=== PATIENT | female | born 1935 | race Caucasian/White ===

== ENCOUNTER 2018-03-07 21:14 | Observation (INO) ==
--- NOTE | 2018-03-07 21:37 | ED ---
HPI General Chief complaint: Syncope Stated complaint: Low blood pressure/syncopal episode Time Seen by Provider: 03/07/18 21:31 History of Present Illness HPI narrative: 82-year-old female with no significant past medical history presents via EMS for evaluation of syncope. She reports that tonight she stood up from a sitting position, felt lightheaded and passed out. Her caught her, she did not fall to the ground. She was hypotensive when EMS arrived with a systolic blood pressure in the 80s. She received 1 L of normal saline. She is currently experiencing mild lightheadedness but is otherwise asymptomatic. Denies chest pain, shortness of breath, recent illness, headache , blurred vision, vomiting, abdominal pain, recent change in diet. She reports that she had a syncopal episode last week in a sitting position. She saw a neurologist Dr. Hatch and reportedly had MRI and MRA of the brain which were negative, EEG which she does not know the results of. No conclusion in regards to her syncopal event last week. She does not have a primary care physician, moved here from [place] 6 months ago. No other complaints. Related Data Allergies Allergy/AdvReac Type Severity Reaction Status Date / Time No Known Allergies Allergy Unverified 03/07/18 21:31 Review of Systems ROS: all other systems reviewed are negative PMFSH Medical History Medical History Absolute glaucoma of both eyes (Acute) Vertigo (Acute) Social History Social History Substance History: No History of Abuse Smoking Status: Never smoker How Often Do You Have a Drink Containing Alcohol: Never Exam Narrative Exam Narrative: GENERAL: Well-developed well-nourished female no acute distress SKIN: Warm and dry. HEAD: Atraumatic. Normocephalic. EYES: Pupils equal and round. No scleral icterus. No injection or drainage. ENT: No nasal bleeding or discharge. Mucous membranes pink and moist. NECK: Trachea midline. No JVD. CARDIOVASCULAR: Regular rate and rhythm. No murmur appreciated. RESPIRATORY: No accessory muscle use. Clear to auscultation. Breath sounds equal bilaterally. GASTROINTESTINAL: Abdomen soft, non-tender, nondistended. Hepatic and splenic margins not palpable. MUSCULOSKELETAL: No obvious deformities. No clubbing. No cyanosis. No edema. NEUROLOGICAL: Awake and alert. No obvious cranial nerve deficits. Motor grossly within normal limits. Normal speech. PSYCHIATRIC: Appropriate mood and affect; insight and judgment normal. Course Initial Documented Vital Signs Temperature 97.7 F 03/07/18 21:28 Pulse Rate 62 03/07/18 21:28 Respiratory Rate 18 03/07/18 21:28 Blood Pressure 111/66 03/07/18 21:28 Pulse Oximetry 100 03/07/18 21:28 Last Documented Vital Signs Temperature 97.7 F 03/07/18 21:28 Pulse Rate 60 03/07/18 21:33 Respiratory Rate 18 03/07/18 21:33 Blood Pressure 111/66 03/07/18 21:33 Pulse Oximetry 100 03/07/18 21:28 Medical Decision Making MDM Narrative Medical decision making narrative: Patient was placed on ECG monitoring pulse oximetry. 12-lead EKG obtained. Lab work, chest x-ray, CT brain ordered. EKG reveals sinus bradycardia with a rate of 58, first-degree AV block. CT the brain reveals no acute abnormalities. CBC unremarkable. BMP reveals a potassium of 3.4, oral potassium chloride administered. At this point time given a history of 2 syncopal events in the past week, the plan will be to admit the patient for observation for further evaluation. Medical Screen Exam Complete: Yes Emergency Medical Condition: Yes Differential Diagnosis Differential Diagnosis: Orthostatic hypotension, vasovagal syncope, electrolyte abnormality, hyperglycemia, dehydration, arrhythmia, structural heart abnormality Lab Data Result diagrams: 03/07/18 21:55 03/07/18 21:55 Lab Results 03/07/18 03/07/18 Range/Units 21:55 21:55 WBC 8.5 (4.0-11.0) th/mm3 RBC 4.32 (4.00-5.30) mil/mm3 Hgb 13.2 (11.6-15.3) gm/dL Hct 40.3 (35.0-46.0) % MCV 93.1 (80.0-100.0) fL MCH 30.6 (27.0-34.0) pg MCHC 32.8 (32.0-36.0) % RDW 14.8 (11.6-17.2) % Plt Count 163 (150-450) th/mm3 MPV 10.1 (7.0-11.0) fL Neut % (Auto) 71.7 H (16.0-70.0) % Lymph % (Auto) 20.9 (9.0-44.0) % [place] % (Auto) 5.8 (0.0-8.0) % Eos % (Auto) 1.1 (0.0-4.0) % Baso % (Auto) 0.5 (0.0-2.0) % Neut # (Auto) 6.1 (1.8-7.7) th/mm3 Lymph # (Auto) 1.8 (1.0-4.8) th/mm3 [place] # (Auto) 0.5 (0.0-0.9) th/mm3 Eos # (Auto) 0.1 (0.0-0.4) th/mm3 Baso # (Auto) 0.0 (0.0-0.2) th/mm3 WBC Differential . Differential Comment Auto diff final Sodium 143 (136-145) meq/L Potassium 3.4 L (3.5-5.1) meq/L Chloride 111 H (98-107) meq/L Carbon Dioxide 24.2 (21.0-32.0) meq/L Anion Gap 8 (5-15) meq/L BUN 19 H (7-18) mg/dL Creatinine 0.83 (0.50-1.00) mg/dL Estimated GFR 66 L (>89) mL/min Random Glucose 96 (74-106) mg/dL Calcium 8.1 L (8.5-10.1) mg/dL Magnesium 1.9 (1.5-2.5) mg/dL Total Bilirubin 0.4 (0.2-1.0) mg/dL AST 16 (15-37) U/L ALT 17 (10-53) U/L Alkaline Phosphatase 46 (45-117) U/L Troponin I Less than 0.02 L (0.02-0.05) ng/mL Total Protein 5.9 L (6.4-8.2) g/dL Albumin 3.3 L (3.4-5.0) g/dL Imaging Data Radiologist's impression: Chest X-Ray 03/07/18 21:31 CONCLUSION: 1. No acute cardiopulmonary disease identified. 2. Age-indeterminate upper lumbar vertebral body compression fracture deformity. Head CT 03/07/18 21:31 CONCLUSION: No acute intracranial findings. . Discharge Plan Discharge Disposition Patient Disposition: 30 Still Patient Discharge Condition Condition: Stable Discharge Details Diagnosis: Syncope Physicians Team ED Provider: Lolis Phillip ED Midlevel Provider: Dung Corbin Primary Care Provider: UNKNOWN, Status ED Status: With Doctor
--- NOTE | 2018-03-07 22:24 | CT ---
EXAM DATE: 03/07/2018 10:18 PM EDT AGE/SEX: 82 years / Female INDICATIONS: Multiple syncopal episodes. CLINICAL DATA: This is the patient's initial encounter. Patient reports that signs and symptoms have been present for 1 day and indicates a pain score of 0/10. MEDICAL/SURGICAL HISTORY: None. None. RADIATION DOSE: 56.35 CTDI (mGy) COMPARISON: No prior exams available for comparison. TECHNIQUE: CT of the head without contrast. Using automated exposure control and adjustment of the mA and/or kV according to patient size, radiation dose was kept as low as reasonably achievable to ob tain optimal diagnostic quality images. DICOM format image data is available electronically for revi ew and comparison. FINDINGS: Cerebrum: Diffuse age-appropriate atrophy. No evidence of midline shift, mass lesion, hemorrhage or acute infarction. No extraaxial fluid collections are seen. Posterior Fossa: The cerebellum and brainstem are intact. The 4th ventricle is midline. The cerebe llopontine angle is unremarkable. Extracranial: The visualized portion of the orbits is intact. Skull: The calvaria is intact. No evidence of skull fracture. CONCLUSION: No acute intracranial findings. . Electronically signed by: Antonio Neves MD 03/07/2018 10:23 PM EDT
[2018-03-07 22:39] LABS: Baso % (Auto) 0.5 % (0.0-2.0); Eos # (Auto) 0.1 th/mm3 (0.0-0.4); Eos % (Auto) 1.1 % (0.0-4.0); Hematocrit 40.3 % (35.0-46.0); Hemoglobin 13.2 gm/dL (11.6-15.3); Lymph # (Auto) 1.8 th/mm3 (1.0-4.8); Lymph % (Auto) 20.9 % (9.0-44.0); Mean Corpuscular HGB Conc 32.8 % (32.0-36.0); Mean Corpuscular Hemoglobin 30.6 pg (27.0-34.0); Mean Corpuscular Volume 93.1 fL (80.0-100.0); Mean Platelet Volume 10.1 fL (7.0-11.0); Mono # (Auto) 0.5 th/mm3 (0.0-0.9); Mono % (Auto) 5.8 % (0.0-8.0); Neut # (Auto) 6.1 th/mm3 (1.8-7.7); Neut % (Auto) 71.7 % (16.0-70.0); Platelet Count 163 th/mm3 (150-450); Red Blood Count 4.32 mil/mm3 (4.00-5.30); Red Cell Distribution Width 14.8 % (11.6-17.2); White Blood Count 8.5 th/mm3 (4.0-11.0)
[2018-03-07 22:44] LABS: Albumin 3.3 g/dL (3.4-5.0); Anion Gap 8 meq/L (5-15); Aspartate Aminotransferase 16 U/L (15-37); Blood Urea Nitrogen 19 mg/dL (7-18); Calcium 8.1 mg/dL (8.5-10.1); Carbon Dioxide 24.2 meq/L (21.0-32.0); Chloride 111 meq/L (98-107); Glomerular Filtration Rate 66 mL/min (>89); Glucose,Random 96 mg/dL (74-106); Magnesium 1.9 mg/dL (1.5-2.5); Potassium 3.4 meq/L (3.5-5.1); Sodium 143 meq/L (136-145)
[2018-03-07 22:45] LABS: Alanine Aminotransferase 17 U/L (10-53)
[2018-03-07 22:49] LABS: Alkaline Phosphatase 46 U/L (45-117); Total Protein 5.9 g/dL (6.4-8.2)
--- NOTE | 2018-03-07 22:57 | XR ---
EXAM DATE: 03/07/2018 10:29 PM EDT AGE/SEX: 82 years / Female INDICATIONS: . Shortness of breath. Possible syncopal episode today. CLINICAL DATA: This is the patient's initial encounter. Patient reports that signs and symptoms have been present for 1 day and indicates a pain score of 0/10. MEDICAL/SURGICAL HISTORY: None. None. COMPARISON: No prior exams available for comparison. FINDINGS: PA and lateral views of the chest. The lungs are clear. Cardiomediastinal silhouette with in normal limits. No evidence of pleural effusion or pneumothorax. Age-indeterminate mild compressi on fracture deformity of an upper lumbar vertebral body. CONCLUSION: 1. No acute cardiopulmonary disease identified. 2. Age-indeterminate upper lumbar vertebral body compression fracture deformity. Electronically signed by: Antonio Neves MD 03/07/2018 10:55 PM EDT
[2018-03-07] MEDS ORDERED: Bisacodyl 10 MG Supp RECTAL PRN (23:08)
[2018-03-07] MEDS ORDERED: Acetaminophen 325 MG Tablet PO PRN (23:08)
--- NOTE | 2018-03-07 23:32 | P.HPIM ---
History of Present Illness Primary Care Physician: UNKNOWN History of Present Illness: This is an 82-year-old female with a PMH of Vertigo and Glaucoma who was brought to the ER by EMS after syncopal event. Pt reports feeling "weak" earlier this evening, "like I needed to bend over" at which time she had subsequent syncopal event, caught by and lowered to a chair. No head trauma reported. Denies dizziness or lightheadedness prior to event. Notes she was seen by Dr. Hatch 1wk ago after "doing funny things", states she was eating breakfast and was putting her spoon in the butter instead of her coffee and trying to cut her plate instead of her toast, pt has no recollection of those events and cannot recall if she had syncope at that time. States she had MRI/MRA which were reportedly negative per patient, and had EEG/labs done but does not know the results. Upon EMS arrival tonight, pt noted to be hypotensive w/ BP in the 80's s/p IVF w/ improvement. BP 111/66, HR 62, O2 sat 100% on RA, Afebrile. CBC unremarkable. K+ 3.4. BUN 19, GFR 66. Troponin negative. CXR with no acute findings, age indeterminate lumbar vertebral body compression fracture. CT Head with no acute findings. - Diagnosis (1) Syncope (2) Hypokalemia (3) Dehydration Review of Systems PAST FAMILY HISTORY: Reviewed. No h/o DM or CAD All other systems reviewed negative except as stated in HPI [facility] - History History Provided By: Patient - Medical History Medical History: Medical History (Last Updated 03/07/18 @ 21:34 by Johanna Albarran) Absolute glaucoma of both eyes Vertigo - Tobacco History Smoking Status: Never smoker - Alcohol History How Often Do You Have a Drink Containing Alcohol: Never - Substance Use History Substance History: No History of Abuse - Immunization History Tetanus Immunization: >5 Years Hx Influenza Vaccine This Season: No Medications and Allergies Active Medications: Active Medications Acetaminophen (Tylenol) 650 mg PO Q4H PRN PRN Reason: Temp > 100.4 Al Hydroxide/Mg Hydroxide (Milk Of Magnesia Liq) 30 ml PO Q12H PRN PRN Reason: Mild Constipation Bisacodyl (Dulcolax Supp) 10 mg RECTAL DAILY PRN PRN Reason: SEVERE CONSITIPATION Sodium Chloride (Ns Inj) 1,000 mls @ 100 mls/hr IV.CONT .Q10H RO Lactulose (Lactulose Liq) 30 ml PO DAILY PRN PRN Reason: SEVERE CONSITIPATION Ondansetron HCl (Zofran Inj) 4 mg IV.PUSH Q6H PRN PRN Reason: NAUSEA OR VOMITING Senna/Docusate Sodium (Nina-Colace) 1 tab PO BID RO Sennosides (Senokot) 17.2 mg PO Q12H PRN PRN Reason: Moderate Constipation Allergies Allergy/AdvReac Type Severity Reaction Status Date / Time No Known Allergies Allergy Unverified 03/07/18 21:31 Exam Vital signs: Vital Signs 03/07/18 21:28 03/07/18 21:33 03/07/18 23:13 Temperature 97.7 F Pulse Rate 62 60 65 Respiratory Rate 18 18 18 Blood Pressure 111/66 111/66 101/57 L Pulse Oximetry 100 95 Intake & Output 03/07/18 03/07/18 03/08/18 06:59 18:59 06:59 Weight 54.431 kg Narrative: PE: GENERAL: Extremely pleasant elderly white female in no acute distress. SKIN: Focused skin assessment warm and dry. HEENT: PERRLA, EOMI. No scleral icterus or conjunctival pallor. No lid lag or facial droop. CARDIOVASCULAR: Regular rate and rhythm. No obvious murmurs to auscultation. No chest tenderness to palpation. RESPIRATORY: No obvious rhonchi or wheezing. Clear to auscultation. Breath sounds equal bilaterally. GASTROINTESTINAL: Abdomen soft, non-tender, nondistended. BS normal. MUSCULOSKELETAL: Extremities without clubbing, cyanosis, or edema. No obvious deformities. NEUROLOGICAL: Awake, alert and oriented x4. No focal neurologic deficits. Moving both upper and lower extremities spontaneously. PSYCHIATRIC: Appropriate mood and affect. Insight and judgment normal. Results - Labs CBC & Chem 7: 03/07/18 21:55 03/07/18 21:55 Labs: Short CBC 03/07/18 Range/Units 21:55 WBC 8.5 (4.0-11.0) th/mm3 Hgb 13.2 (11.6-15.3) gm/dL Hct 40.3 (35.0-46.0) % Plt Count 163 (150-450) th/mm3 BMP 03/07/18 21:55 Sodium 143 Potassium 3.4 L Chloride 111 H Carbon Dioxide 24.2 BUN 19 H Creatinine 0.83 Calcium 8.1 L Cardiac Enzymes 03/07/18 Range/Units 21:55 Troponin I Less than 0.02 L (0.02-0.05) ng/mL Liver Function 03/07/18 Range/Units 21:55 Total Bilirubin 0.4 (0.2-1.0) mg/dL AST 16 (15-37) U/L ALT 17 (10-53) U/L Alkaline Phosphatase 46 (45-117) U/L Albumin 3.3 L (3.4-5.0) g/dL - Imaging Impressions Chest X-Ray 03/07/18 21:31 CONCLUSION: 1. No acute cardiopulmonary disease identified. 2. Age-indeterminate upper lumbar vertebral body compression fracture deformity. Head CT 03/07/18 21:31 CONCLUSION: No acute intracranial findings. . Caprini VTE Risk Assessment Caprini VTE Risk Assessment: No/Low Risk (score <= 1) Caprini Risk Assessment Model: Point Value = 1 Point Value = 2 Point Value = 3 Point Value = 5 Age 41-60 Minor surgery BMI > 25 kg/m2 Swollen legs Varicose veins or History of unexplained or recurrent spontaneous Oral contraceptives or hormone replacement Sepsis (< 1 month) Serious lung disease, including pneumonia (< 1 month) Abnormal pulmonary function Acute myocardial infarction Congestive heart failure (< 1 month) History of inflammatory bowel disease Medical patient at bed rest Age 61-74 Arthroscopic surgery Major open surgery (> 45 min) Laparoscopic surgery (> 45 min) Malignancy Confined to bed (> 72 hours) Immobilizing plaster cast Central venous access Age >= 75 History of VTE Family history of VTE Factor V Leiden Prothrombin [id number] Lupus anticoagulant Anticardiolipin antibodies Elevated serum homocysteine Heparin-induced thrombocytopenia Other congenital or acquired thrombophilia Stroke (< 1 month) Elective arthroplasty Hip, pelvis, or leg fracture Acute spinal cord injury (< 1 month) Prophylaxis Regimen: Total Risk Factor Score Risk Level Prophylaxis Regimen 0-1 Low Early ambulation 2 Moderate Order ONE of the following: *Sequential Compression Device (SCD) *Heparin 5000 units SQ BID 3-4 Higher Order ONE of the following medications: *Heparin 5000 units SQ TID *Enoxaparin/Lovenox 40 mg SQ daily (WT < 150 kg, CrCl > 30 mL/min) *Enoxaparin/Lovenox 30 mg SQ daily (WT < 150 kg, CrCl > 10-29 mL/min) *Enoxaparin/Lovenox 30 mg SQ BID (WT < 150 kg, CrCl > 30 mL/min) AND/OR *Sequential Compression Device (SCD) 5 or more Highest Order ONE of the following medications: *Heparin 5000 units SQ TID (Preferred with Epidurals) *Enoxaparin/Lovenox 40 mg SQ daily (WT < 150 kg, CrCl > 30 mL/min) *Enoxaparin/Lovenox 30 mg SQ daily (WT < 150 kg, CrCl > 10-29 mL/min) *Enoxaparin/Lovenox 30 mg SQ BID (WT < 150 kg, CrCl > 30 mL/min) AND *Sequential Compression Device (SCD) Assessment and Plan - Assessment (1) Syncope Code(s): R55 - Syncope and collapse Status: Acute (2) Hypokalemia Code(s): E87.6 - Hypokalemia Status: Acute (3) Dehydration Code(s): E86.0 - Dehydration Status: Acute - Plan A/P: 1. Syncope: acute syncopal event, lowered to chair by family, no head trauma. CT Head w/ no acute findings, images reviewed. Episode of confusion/bizarre behavior 1wk ago, s/p eval by Dr. Hatch w/ reportedly negative MRI/MRA, EEG/ labs also done but no results available-unclear if syncope related to events of last week. Admit for further observation, telemetry, initial trop negative, check serial cardiac enzymes to eval for ischemia, check Echo to eval for valvular abnormalities, consult Dr. Hatch for further evaluation, Consult Cardiology for further eval/intervention, Holter. 2. Hypokalemia: K+ 3.4, s/p replacement, will recheck and replace as needed 3. Dehydration: BUN 19, GFR 66, IVF for hydration, check U/a to eval for UTI, monitor I/O. 4. DVT Prophylaxis: SCD/Teds 5. Social work for d/c planning as needed 6. Case discussed w/ ER physician at length, labs/records/imaging reviewed by me.
[2018-03-08] MEDS: Sod Chloride 0.9% Inj 1,000 ML IV.CONT SCH ×3 (00:34→21:36)
[2018-03-08 02:41] LABS: Bilirubin,Urine Negative (Negative); Clarity,Urine Clear (Clear); Color,Urine Yellow (Yellw/Straw); Glucose,Urine (UA) Negative (Negative); Leukocyte Esterase,Urine Moderate (Negative); Mucus,Urine Few /lpf (Occasional); Nitrite,Urine Negative (Negative); Specific Gravity,Urine 1.017 (1.002-1.035); Squamous Epithelial Cell,Urine <1 /hpf (0-5)
[2018-03-08 06:56] LABS: Baso % (Auto) 0.4 % (0.0-2.0); Eos # (Auto) 0.1 th/mm3 (0.0-0.4); Eos % (Auto) 1.4 % (0.0-4.0); Hematocrit 38.5 % (35.0-46.0); Hemoglobin 12.7 gm/dL (11.6-15.3); Lymph # (Auto) 1.9 th/mm3 (1.0-4.8); Lymph % (Auto) 27.9 % (9.0-44.0); Mean Corpuscular Volume 93.8 fL (80.0-100.0); Mean Platelet Volume 10.8 fL (7.0-11.0); Mono # (Auto) 0.5 th/mm3 (0.0-0.9); Mono % (Auto) 7.8 % (0.0-8.0); Neut # (Auto) 4.2 th/mm3 (1.8-7.7); Neut % (Auto) 62.5 % (16.0-70.0); Platelet Count 140 th/mm3 (150-450); Red Cell Distribution Width 14.5 % (11.6-17.2); White Blood Count 6.7 th/mm3 (4.0-11.0)
[2018-03-08 07:09] LABS: Anion Gap 10 meq/L (5-15); Aspartate Aminotransferase 16 U/L (15-37); Blood Urea Nitrogen 14 mg/dL (7-18); Calcium 7.8 mg/dL (8.5-10.1); Chloride 114 meq/L (98-107); Glomerular Filtration Rate 87 mL/min (>89); Glucose,Random 92 mg/dL (74-106); Potassium 4.1 meq/L (3.5-5.1); Sodium 144 meq/L (136-145)
[2018-03-08 07:10] LABS: Alanine Aminotransferase 15 U/L (10-53)
[2018-03-08 07:12] LABS: Alkaline Phosphatase 43 U/L (45-117); Total Protein 5.6 g/dL (6.4-8.2)
[2018-03-08] MEDS: Senna/Docusate Sodium 8.6/50 MG Tablet PO SCH ×2 (09:55→20:16)
--- NOTE | 2018-03-08 13:58 | ECG ---
Date Performed: 03/08/2018 Time Performed: 05:58:25 PTAGE: 82 years EKG: Sinus rhythm NORMAL ECG INTERPRETATION BASED ON A DEFAULT AGE OF 40 YEARS NO PREVIOUS TRACING DOCTOR: Jenaro Ordaz Interpretating Date/Time 03/08/2018 13:56:24
--- NOTE | 2018-03-08 14:00 | ECG ---
Date Performed: 03/08/2018 Time Performed: 02:25:26 PTAGE: 82 years EKG: Sinus rhythm NORMAL ECG NO PREVIOUS TRACING DOCTOR: Jenaro Oradz Interpretating Date/Time 03/08/2018 13:57:50
--- NOTE | 2018-03-08 14:04 | ECG ---
Date Performed: 03/07/2018 Time Performed: 21:36:59 PTAGE: 82 years EKG: SINUS BRADYCARDIA WITH FIRST DEGREE AV BLOCK ABNORMAL ECG PREVIOUS TRACING : 03/07/2018 21.36 DOCTOR: Jenaro Ordaz Interpretating Date/Time 03/08/2018 14:01:29
--- NOTE | 2018-03-08 15:46 | P.PN ---
Subjective Interval history: Patient seen lying in bed after working with physical therapy. Tolerated PT well. Denies any further syncopal episodes. No dizziness, headache or changes in vision. She was not aware she had a UTI-no dysuria. No fever or chills. No chest pain or shortness of breath. Physical Exam Vital signs: Vital Signs 03/07/18 21:28 03/07/18 21:33 03/07/18 23:13 Temperature 97.7 F Pulse Rate 62 60 65 Respiratory Rate 18 18 18 Blood Pressure 111/66 111/66 101/57 L Pulse Oximetry 100 95 03/08/18 00:00 03/08/18 04:00 03/08/18 10:09 Temperature 97.9 F 97.9 F Pulse Rate 70 70 70 Respiratory Rate 19 19 Blood Pressure 117/56 L 117/56 L Pulse Oximetry 95 95 03/08/18 12:15 Temperature 98.2 F Pulse Rate 78 Respiratory Rate 20 Blood Pressure 123/60 Pulse Oximetry 98 Intake & Output 03/07/18 03/08/18 03/08/18 18:59 06:59 18:59 Intake Total 50 / 50 600 / 600 Balance 50 / 50 600 / 600 Weight 54.431 kg Intake: IV 100 / 100 NS Inj 1,000 ML @ 100 mls/hr IV 0 / 0 .CONT .Q10H RO Rx#:[id number] Rocephin Inj 1,000 MG In NS Inj 100 / 100 100 ML @ 200 mls/hr IV.SIG Q12H RO Rx#:[id number] Oral 50 / 50 500 / 500 Other: # Voids 1 Weight On Admission 54.431 kg Narrative: GENERAL: Extremely pleasant elderly white female in no acute distress. SKIN: Focused skin assessment warm and dry. HEENT: PERRLA, EOMI. No scleral icterus or conjunctival pallor. No lid lag or facial droop. CARDIOVASCULAR: Regular rate and rhythm. No obvious murmurs to auscultation. No chest tenderness to palpation. RESPIRATORY: Clear to auscultation. Breath sounds equal bilaterally. GASTROINTESTINAL: Abdomen soft, non-tender, nondistended. BS normal. MUSCULOSKELETAL: Extremities without clubbing, cyanosis, or edema. No obvious deformities. NEUROLOGICAL: Awake, alert and oriented x4. No focal neurologic deficits. Moving both upper and lower extremities spontaneously. PSYCHIATRIC: Appropriate mood and affect. Insight and judgment normal. Results - Labs CBC & Chem 7: 03/08/18 05:55 03/08/18 05:55 Laboratory Results - last 24 hr 03/07/18 03/07/18 03/08/18 21:55 21:55 02:00 WBC 8.5 RBC 4.32 Hgb 13.2 Hct 40.3 MCV 93.1 MCH 30.6 MCHC 32.8 RDW 14.8 Plt Count 163 MPV 10.1 Neut % (Auto) 71.7 H Lymph % (Auto) 20.9 [place] % (Auto) 5.8 Eos % (Auto) 1.1 Baso % (Auto) 0.5 Neut # (Auto) 6.1 Lymph # (Auto) 1.8 [place] # (Auto) 0.5 Eos # (Auto) 0.1 Baso # (Auto) 0.0 WBC Differential . Differential Comment Auto diff final Sodium 143 Potassium 3.4 L Chloride 111 H Carbon Dioxide 24.2 Anion Gap 8 BUN 19 H Creatinine 0.83 Estimated GFR 66 L Random Glucose 96 Calcium 8.1 L Magnesium 1.9 Total Bilirubin 0.4 AST 16 ALT 17 Alkaline Phosphatase 46 Troponin I Less than 0.02 L Less than 0.02 L Total Protein 5.9 L Albumin 3.3 L Urine Color Urine Clarity Urine pH Ur Specific [place] Urine Protein Urine Glucose (UA) Urine Ketones Urine Occult Blood Urine Nitrate Urine Bilirubin Urine Urobilinogen Ur Leukocyte Esterase Urine RBC Urine WBC Ur Squamous Epith Cells Urine Mucus Micro UA Comment Ur Microscopic Review Urine Culture Comments 03/08/18 03/08/18 03/08/18 02:20 05:55 05:55 WBC 6.7 RBC 4.10 Hgb 12.7 Hct 38.5 MCV 93.8 MCH 31.0 MCHC 33.0 RDW 14.5 Plt Count 140 L MPV 10.8 Neut % (Auto) 62.5 Lymph % (Auto) 27.9 [place] % (Auto) 7.8 Eos % (Auto) 1.4 Baso % (Auto) 0.4 Neut # (Auto) 4.2 Lymph # (Auto) 1.9 [place] # (Auto) 0.5 Eos # (Auto) 0.1 Baso # (Auto) 0.0 WBC Differential . Differential Comment Auto diff final Sodium 144 Potassium 4.1 Chloride 114 H Carbon Dioxide 20.0 L Anion Gap 10 BUN 14 Creatinine 0.65 Estimated GFR 87 L Random Glucose 92 Calcium 7.8 L Magnesium Total Bilirubin 0.6 AST 16 ALT 15 Alkaline Phosphatase 43 L Troponin I Total Protein 5.6 L Albumin 3.0 L Urine Color Yellow Urine Clarity Clear Urine pH 5.0 Ur Specific [place] 1.017 Urine Protein Negative Urine Glucose (UA) Negative Urine Ketones Negative Urine Occult Blood Negative Urine Nitrate Negative Urine Bilirubin Negative Urine Urobilinogen Less than 2 Ur Leukocyte Esterase Moderate H Urine RBC 1 Urine WBC 21 H Ur Squamous Epith Cells <1 Urine Mucus Few H Micro UA Comment Culture indicated Ur Microscopic Review Not Reportable Urine Culture Comments Culture indicated 03/08/18 05:55 WBC RBC Hgb Hct MCV MCH MCHC RDW Plt Count MPV Neut % (Auto) Lymph % (Auto) [place] % (Auto) Eos % (Auto) Baso % (Auto) Neut # (Auto) Lymph # (Auto) [place] # (Auto) Eos # (Auto) Baso # (Auto) WBC Differential Differential Comment Sodium Potassium Chloride Carbon Dioxide Anion Gap BUN Creatinine Estimated GFR Random Glucose Calcium Magnesium Total Bilirubin AST ALT Alkaline Phosphatase Troponin I Less than 0.02 L Total Protein Albumin Urine Color Urine Clarity Urine pH Ur Specific [place] Urine Protein Urine Glucose (UA) Urine Ketones Urine Occult Blood Urine Nitrate Urine Bilirubin Urine Urobilinogen Ur Leukocyte Esterase Urine RBC Urine WBC Ur Squamous Epith Cells Urine Mucus Micro UA Comment Ur Microscopic Review Urine Culture Comments - Imaging Impressions Chest X-Ray 03/07/18 21:31 CONCLUSION: 1. No acute cardiopulmonary disease identified. 2. Age-indeterminate upper lumbar vertebral body compression fracture deformity. Head CT 03/07/18 21:31 CONCLUSION: No acute intracranial findings. . Assessment and Plan - Assessment (1) Syncope Code(s): R55 - Syncope and collapse Status: Acute (2) Hypokalemia Code(s): E87.6 - Hypokalemia Status: Acute (3) Dehydration Code(s): E86.0 - Dehydration Status: Acute - Plan A/P: 1. Syncope: acute syncopal event, lowered to chair by family, no head trauma. -CT Head w/ no acute findings- -Episode of confusion/bizarre behavior 1wk ago, s/p eval by Dr. Hatch w/ reportedly negative MRI/MRA, EEG/labs also done but no results available- unclear if syncope related to events of last week. -telemetry, trop negative -Echo ordered -consult Dr. Hatch for further evaluation -Consult Cardiology for further eval/intervention 2. Hypokalemia: - K+ 3.4, s/p replacement, will recheck and replace as needed 3. Dehydration: -IVF for hydration 4. UTI -Start Rocephin; monitor cultures DVT Prophylaxis: SCD/Teds
--- NOTE | 2018-03-08 15:59 | P.CONNEU ---
History of Present Illness Service: NEUROLOGY Consult date: 03/08/18 Reason for Consult: TAMICA Primary Care Provider: UNKNOWN Chief Complaint: PASSED OUT, NOTED STARING EPISODES History of Present Illness: IT IS A PRIVILEGE TO PROVIDE ANEUROLOGY CONSULTATION FOR THIS 82 YO LADY BROUGHT IN BY HER FAMILY AFTER DIZZINESS, BLACK OUT WITH WITNESSED STARING EVENTS, AMNESIA WOKE UP W [facility]L [facility]Y. NO BITEN TONGUE + SWEATY Review of Systems All other systems reviewed negative except as stated in HPI Neurologic: Reports abnormal hearing PMFSH - History History Provided By: Patient - Medical History Medical History: Medical History (Last Reviewed 03/08/18 @ 08:08 by Donato Wilkinson) Absolute glaucoma of both eyes Vertigo - Tobacco History Second Hand Smoke Exposure: No Tobacco Use In Past 30 Days: No Smoking Status: Former smoker - Alcohol History How Often Do You Have a Drink Containing Alcohol: 2 to 3 times a week - Substance Use History Substance History: No History of Abuse - Immunization History Tetanus Immunization: >5 Years Hx Influenza Vaccine This Season: No Medications and Allergies Active Medications: Active Medications Acetaminophen (Tylenol) 650 mg PO Q4H PRN PRN Reason: Temp > 100.4 Al Hydroxide/Mg Hydroxide (Milk Of Magnesia Liq) 30 ml PO Q12H PRN PRN Reason: Mild Constipation Bisacodyl (Dulcolax Supp) 10 mg RECTAL DAILY PRN PRN Reason: SEVERE CONSITIPATION Sodium Chloride (Ns Inj) 1,000 mls @ 100 mls/hr IV.CONT .Q10H [facility] Last Admin: 03/08/18 09:55 Dose: 100 mls/hr Ceftriaxone Sodium 1,000 mg/ (Sodium Chloride) 100 mls @ 200 mls/hr IV.SIG Q12H [facility] Last Infusion: 03/08/18 11:34 Dose: Infused Lactulose (Lactulose Liq) 30 ml PO DAILY PRN PRN Reason: SEVERE CONSITIPATION Ondansetron HCl (Zofran Inj) 4 mg IV.PUSH Q6H PRN PRN Reason: NAUSEA OR VOMITING Senna/Docusate Sodium (Nina-Colace) 1 tab PO BID [facility] Last Admin: 03/08/18 09:55 Dose: 1 tab Sennosides (Senokot) 17.2 mg PO Q12H PRN PRN Reason: Moderate Constipation Allergies Allergy/AdvReac Type Severity Reaction Status Date / Time No Known Allergies Allergy Unverified 03/07/18 21:31 Exam Vital signs: Vital Signs 03/07/18 21:28 03/07/18 21:33 03/07/18 23:13 Temperature 97.7 F Pulse Rate 62 60 65 Respiratory Rate 18 18 18 Blood Pressure 111/66 111/66 101/57 L Pulse Oximetry 100 95 03/08/18 00:00 03/08/18 04:00 03/08/18 10:09 Temperature 97.9 F 97.9 F Pulse Rate 70 70 70 Respiratory Rate 19 19 Blood Pressure 117/56 L 117/56 L Pulse Oximetry 95 95 03/08/18 12:15 Temperature 98.2 F Pulse Rate 78 Respiratory Rate 20 Blood Pressure 123/60 Pulse Oximetry 98 Intake & Output 03/07/18 03/08/18 03/08/18 18:59 06:59 18:59 Intake Total 50 / 50 600 / 600 Balance 50 / 50 600 / 600 Weight 54.431 kg Intake: IV 100 / 100 NS Inj 1,000 ML @ 100 mls/hr IV 0 / 0 .CONT .Q10H RO Rx#:[id number] Rocephin Inj 1,000 MG In NS Inj 100 / 100 100 ML @ 200 mls/hr IV.SIG Q12H RO Rx#:[id number] Oral 50 / 50 500 / 500 Other: # Voids 1 Weight On Admission 54.431 kg - Constitutional no acute distress, average body habitus - Routine HEENT Exam Head: Present: normocephalic, atraumatic Eye: Present: EOMI, PERRL ENT: Present: mucous membranes moist - Routine Neck Exam Present: supple. Absent: JVD, carotid bruit - Routine Chest/Breast/Axilla Exam Chest wall: Absent: tenderness - Routine Respiratory Exam Absent: rales, rhonchi - Routine Cardiovascular Exam Present: S1, S2. Absent: irregularly irregular - Routine Abdominal Exam Present: soft, normoactive bowel sounds. Absent: tenderness, rebound - Routine Extremities Exam Absent: cyanosis - Routine Skin Exam Present: intact - Routine Neurological Exam Present: alert, oriented X3, CN II-XII intact (MENTAL STATUS + EX ANXIOUS ATTENTION 2/3 ), sensory deficit (II-XII + EX DIMINISHED LEFT N/L FOLD), motor deficit (MOTOR TONE NL NO PRONATOR DRIFT DTR 1+ PLANTER STIMULATES FLEXOR RESPONSES) MENTAL STATUS + EX ANXIOUS ATTENTION 2/3 CN II-XII + EX DIMINISHED HIGH FREQ HEARING B/L, SL DIMINISHED LEFT N/L FOLD MOTOR TONE NL, NO PRONATOR DRIFT, DTR 1+ PLANTER STIMULATES FLEXOR RESPONSES SENSORY+ NL FNFT NO DYSMETRIA Results - Labs CBC & Chem 7: 03/08/18 05:55 03/08/18 05:55 Labs: Laboratory Results - last 24 hr 03/07/18 03/07/18 03/08/18 21:55 21:55 02:00 WBC 8.5 RBC 4.32 Hgb 13.2 Hct 40.3 MCV 93.1 MCH 30.6 MCHC 32.8 RDW 14.8 Plt Count 163 MPV 10.1 Neut % (Auto) 71.7 H Lymph % (Auto) 20.9 [place] % (Auto) 5.8 Eos % (Auto) 1.1 Baso % (Auto) 0.5 Neut # (Auto) 6.1 Lymph # (Auto) 1.8 [place] # (Auto) 0.5 Eos # (Auto) 0.1 Baso # (Auto) 0.0 WBC Differential . Differential Comment Auto diff final Sodium 143 Potassium 3.4 L Chloride 111 H Carbon Dioxide 24.2 Anion Gap 8 BUN 19 H Creatinine 0.83 Estimated GFR 66 L Random Glucose 96 Calcium 8.1 L Magnesium 1.9 Total Bilirubin 0.4 AST 16 ALT 17 Alkaline Phosphatase 46 Troponin I Less than 0.02 L Less than 0.02 L Total Protein 5.9 L Albumin 3.3 L Urine Color Urine Clarity Urine pH Ur Specific [place] Urine Protein Urine Glucose (UA) Urine Ketones Urine Occult Blood Urine Nitrate Urine Bilirubin Urine Urobilinogen Ur Leukocyte Esterase Urine RBC Urine WBC Ur Squamous Epith Cells Urine Mucus Micro UA Comment Ur Microscopic Review Urine Culture Comments 03/08/18 03/08/18 03/08/18 02:20 05:55 05:55 WBC 6.7 RBC 4.10 Hgb 12.7 Hct 38.5 MCV 93.8 MCH 31.0 MCHC 33.0 RDW 14.5 Plt Count 140 L MPV 10.8 Neut % (Auto) 62.5 Lymph % (Auto) 27.9 [place] % (Auto) 7.8 Eos % (Auto) 1.4 Baso % (Auto) 0.4 Neut # (Auto) 4.2 Lymph # (Auto) 1.9 [place] # (Auto) 0.5 Eos # (Auto) 0.1 Baso # (Auto) 0.0 WBC Differential . Differential Comment Auto diff final Sodium 144 Potassium 4.1 Chloride 114 H Carbon Dioxide 20.0 L Anion Gap 10 BUN 14 Creatinine 0.65 Estimated GFR 87 L Random Glucose 92 Calcium 7.8 L Magnesium Total Bilirubin 0.6 AST 16 ALT 15 Alkaline Phosphatase 43 L Troponin I Total Protein 5.6 L Albumin 3.0 L Urine Color Yellow Urine Clarity Clear Urine pH 5.0 Ur Specific [place] 1.017 Urine Protein Negative Urine Glucose (UA) Negative Urine Ketones Negative Urine Occult Blood Negative Urine Nitrate Negative Urine Bilirubin Negative Urine Urobilinogen Less than 2 Ur Leukocyte Esterase Moderate H Urine RBC 1 Urine WBC 21 H Ur Squamous Epith Cells <1 Urine Mucus Few H Micro UA Comment Culture indicated Ur Microscopic Review Not Reportable Urine Culture Comments Culture indicated 03/08/18 05:55 WBC RBC Hgb Hct MCV MCH MCHC RDW Plt Count MPV Neut % (Auto) Lymph % (Auto) [place] % (Auto) Eos % (Auto) Baso % (Auto) Neut # (Auto) Lymph # (Auto) [place] # (Auto) Eos # (Auto) Baso # (Auto) WBC Differential Differential Comment Sodium Potassium Chloride Carbon Dioxide Anion Gap BUN Creatinine Estimated GFR Random Glucose Calcium Magnesium Total Bilirubin AST ALT Alkaline Phosphatase Troponin I Less than 0.02 L Total Protein Albumin Urine Color Urine Clarity Urine pH Ur Specific [place] Urine Protein Urine Glucose (UA) Urine Ketones Urine Occult Blood Urine Nitrate Urine Bilirubin Urine Urobilinogen Ur Leukocyte Esterase Urine RBC Urine WBC Ur Squamous Epith Cells Urine Mucus Micro UA Comment Ur Microscopic Review Urine Culture Comments - Imaging Impressions Chest X-Ray 03/07/18 21:31 CONCLUSION: 1. No acute cardiopulmonary disease identified. 2. Age-indeterminate upper lumbar vertebral body compression fracture deformity. Head CT 03/07/18 21:31 CONCLUSION: No acute intracranial findings. . Review/Management - Review/Management Plan: ASSESSMENT 1. NEW ONSET SZ 2 TO PROLONGED SYNCOPE? UTI? 2. HYPOCAPNEA 3. THROMBOCYTOPENIA 4. UTI PLAN 1. WILL REVEIW RECENT BRAIN SCAN AND EEG, PRN VEEG/AEEG WILL D/W PT PRIMARY NEUROLOGIST DR JULIEN 2. NO DRIVING, NO AED FOR NOW 3. MONITOR PLT PRN SERVICER CONSULT 4. REPEAT LAB, LIKELY POSTICTAL 5. D/W AND DAUGHTERS, WILL D/W DR JULIEN AND PMD THANK YOU VERY MUCH FOR THE COURTESY OF THIS VERY KINDLY REFERRAL
--- NOTE | 2018-03-08 18:02 | MB ---
cc: Jenaro Ordaz MD DATE: 03/08/2018 REASON FOR CONSULTATION: Syncopal episode. HISTORY OF PRESENT ILLNESS: Ms. Delgado is an 82-year-old female with a history of glaucoma, vertigo, followed by neurology. Previous workup was negative. She has had multiple episodes of syncope, maybe 3-4 of them. She was seen by Dr. José Miguel Hatch. MRI, CT scan and all studies were negative. She was at home yesterday and was going to pass out. She was caught by the and put in a chair and subsequently was brought to the emergency room where she was admitted. The chart was reviewed. The patient was evaluated. I discussed the case extensively with the patient, her and 2 daughters. ALLERGIES: NONE REPORTED. SOCIAL HISTORY: Negative for smoking and drinking. FAMILY HISTORY: Noncontributory to her current medical condition. MEDICATIONS: She is on: 1. Tylenol. 2. Ceftriaxone. 3. Zofran. REVIEW OF SYSTEMS: She refers currently no dizziness, no chest pain, no shortness of breath. PHYSICAL EXAMINATION: GENERAL: Alert, fully oriented. VITAL SIGNS: Blood pressure 122/60, pulse 78, respiratory rate 18. LUNGS: Ventilated. CARDIOVASCULAR: S1, S2. No gallop, no murmur. ABDOMEN: Soft. No mass, no bruit. EXTREMITIES: No edema. ELECTROCARDIOGRAM: Shows sinus rhythm, no acute ST-T wave changes. Heart rate is around 55-60 beats per minute. LABORATORY DATA: Hemoglobin 12.7, white blood cells 6.7. Potassium 14.1, creatinine 0.65. Troponin less than 0.02. ASSESSMENT AND RECOMMENDATIONS: Ms. Delgado has had glaucoma for over 4 years. There was no change in medication. For the last 6-8 months, she has began to have syncopal episodes and apparent bradycardia. No significant episodes of bradycardia ever recorded. She had an MRI and all neurologic workup was negative. She is back again with a syncopal episode. Blood pressure is adequate. I discussed the case extensively with the family. At this point, my recommendation is observation. I am going to request a 2-D echo to evaluate wall motion and valvular function. Depending on the neurological evaluation, the patient may need a loop recorder insertion. Case discussed with them and I will monitor her during this hospitalization. Further decision after neurologic evaluation. MD Alexi Pena , 03:27 PM , 03:35 PM
[2018-03-08] MEDS ORDERED: Melatonin 5 MG Tablet PO ONE (21:00)
[2018-03-09] MEDS ORDERED: Ibuprofen 400 MG Tablet PO ONE (05:06)
[2018-03-09] MEDS: Sod Chloride 0.9% Inj 1,000 ML IV.CONT SCH (05:37)
[2018-03-09] MEDS: Senna/Docusate Sodium 8.6/50 MG Tablet PO SCH (09:00)
[2018-03-09 11:42] VITALS: BP 118/69; PULSE 60; RESP 16; TEMP 98.8; O2SAT 94
[2018-03-09] MEDS ORDERED: Ibuprofen 400 MG Tablet PO PRN (11:48)
--- NOTE | 2018-03-09 12:24 | ECHRPT ---
Indication: CARDIOMYOPATHY CONCLUSIONS The left ventricular systolic function is low normal with an estimated ejection fraction in the rang e of 50- 55%. No regional wall motion abnormalities. Normal left ventricular size and wall thickness. . Mild aortic valve regurgitation. No other significant valvular abnormalities present. The estimated pulmonary arterial pressure is 33 mmHg. A small left sided pleural effusion is noted. The IVC is normal size and collapses with inspiration. No prior echo for comparison. BP: / HR: Rhythm: Sinus MEASUREMENTS (Male / Female) Normal Values Technical Quality:Fair 2D ECHO LV Diastolic Diameter PLAX 3.7 cm 4.2 - 5.9 / 3.9 - 5.3 cm LV Systolic Diameter PLAX 2.9 cm IVS Diastolic Thickness 0.9 cm 0.6 - 1.0 / 0.6 - 0.9 cm LVPW Diastolic Thickness 0.9 cm 0.6 - 1.0 / 0.6 - 0.9 cm LV Relative Wall Thickness 0.5 LVOT Diameter 1.7 cm LA Systolic Diameter LX 2.7 cm 3.0 - 4.0 / 2.7 - 3.8 cm LV Ejection Fraction MOD 4C 51.5 % LV Ejection Fraction 4C AL 50.4 % M-MODE Aortic Root Diameter MM 2.8 cm AV Cusp Separation MM 1.6 cm DOPPLER AV Peak Velocity 102.0 cm/s AV Peak Gradient 4.2 mmHg AI Peak Velocity 289.0 cm/s AI Peak Gradient 33.4 mmHg AI Pressure Half Time 658.0 ms LVOT Peak Velocity 93.3 cm/s LVOT Peak Gradient 3.5 mmHg AV Area Cont Eq pk 2.1 cm MV Area PHT 4.2 cm Mitral E Point Velocity 65.6 cm/s Mitral A Point Velocity 63.2 cm/s Mitral E to A Ratio 1.0 LV E' Lateral Velocity 6.1 cm/s Mitral E to LV E' Lateral Ratio 10.7 LV E' Septal Velocity 5.7 cm/s Mitral E to LV E' Septal Ratio 11.6 TR Peak Velocity 240.0 cm/s TR Peak Gradient 23.0 mmHg Right Atrial Pressure 10.0 mmHg Pulmonary Artery Systolic Pressu 33.0 mmHg Right Ventricular Systolic Press 33.0 mmHg PV Peak Velocity 74.7 cm/s PV Peak Gradient 2.2 mmHg FINDINGS LEFT VENTRICLE The left ventricular systolic function is low normal with an estimated ejection fraction in the rang e of 50- 55%. Normal left ventricular size. Wall thickness is normal. No regional wall motion abnormalities are present. RIGHT VENTRICLE Normal right ventricular size and systolic function. LEFT ATRIUM The left atrial size is normal. RIGHT ATRIUM The right atrial size is normal. ATRIAL SEPTUM Normal atrial septal thickness without atrial level shunting by limited color doppler interrogation. AORTA The aortic root and proximal ascending aorta are normal in size on limited imaging. MITRAL VALVE Structurally normal mitral valve. Trace mitral valve regurgitation. AORTIC VALVE Trileaflet aortic valve. Aortic valve sclerosis is present. Mild aortic valve regurgitation. TRICUSPID VALVE Structurally normal tricuspid valve. There is trace tricuspid valve regurgitation. The estimated pulmonary arterial pressure is 33 mmHg. PULMONARY VALVE No pulmonary valve regurgitation or stenosis. VESSELS The inferior vena cava is normal in size. PERICARDIUM A small left sided pleural effusion is noted. Macie Jacobs MD (Electronically Signed) Final Date:09 March 2018 12:23
--- NOTE | 2018-03-09 13:06 | P.PN ---
Subjective Interval history: Patient is seen sitting in room. Her and daughter are present. Daughter is a nurse practitioner from [place]. Patient tells me that she would like to go home. She is feeling fine and has had no further syncopal episodes. No headache or dizziness. No nausea vomiting or diarrhea. No dysuria, fever or chills. Physical Exam Vital signs: Vital Signs 03/08/18 16:00 03/08/18 19:37 03/09/18 00:00 Temperature 98.1 F 97.7 F 97.9 F Pulse Rate 66 62 68 Respiratory Rate 14 19 19 Blood Pressure 112/70 123/75 116/65 Pulse Oximetry 68 L 96 94 L 03/09/18 03:51 03/09/18 08:00 03/09/18 11:40 Temperature 97.5 F L 98.7 F 98.8 F Pulse Rate 67 59 L 60 Respiratory Rate 19 18 16 Blood Pressure 118/74 143/80 H 118/69 Pulse Oximetry 97 96 94 L Intake & Output 03/08/18 03/09/18 03/09/18 18:59 06:59 18:59 Intake Total 1100 / 1100 2120 / 2120 100 / 100 Balance 1100 / 1100 2120 / 2120 100 / 100 Weight 54.431 kg Intake: IV 100 / 100 2100 / 2100 100 / 100 NS Inj 1,000 ML @ 100 mls/hr IV 0 / 0 1999 / 1999 .CONT .Q10H RO Rx#:[id number] Rocephin Inj 1,000 MG In NS Inj 100 / 100 100 / 100 100 / 100 100 ML @ 200 mls/hr IV.SIG Q12H RO Rx#:[id number] Oral 1000 / 1000 20 / 20 Other: # Voids 1 Narrative: GENERAL: Extremely pleasant elderly white female in no acute distress. SKIN: Focused skin assessment warm and dry. HEENT: PERRLA, EOMI. No scleral icterus or conjunctival pallor. No lid lag or facial droop. CARDIOVASCULAR: Regular rate and rhythm. No obvious murmurs to auscultation. No chest tenderness to palpation. RESPIRATORY: Clear to auscultation. Breath sounds equal bilaterally. GASTROINTESTINAL: Abdomen soft, non-tender, nondistended. BS normal. MUSCULOSKELETAL: Extremities without clubbing, cyanosis, or edema. No obvious deformities. NEUROLOGICAL: Awake, alert and oriented x4. No focal neurologic deficits. Moving both upper and lower extremities spontaneously. PSYCHIATRIC: Appropriate mood and affect. Insight and judgment normal. Results - Labs CBC & Chem 7: 03/08/18 05:55 03/08/18 05:55 Assessment and Plan - Assessment (1) Syncope Code(s): R55 - Syncope and collapse Status: Acute (2) Hypokalemia Code(s): E87.6 - Hypokalemia Status: Acute (3) Dehydration Code(s): E86.0 - Dehydration Status: Acute - Plan A/P: 1. Syncope: acute syncopal event, lowered to chair by family, no head trauma. -CT Head w/ no acute findings- -Episode of confusion/bizarre behavior 1wk ago, s/p eval by Dr. Hatch w/ reportedly negative MRI/MRA, EEG/labs also done but no results available- unclear if syncope related to events of last week. -telemetry, trop negative -Echo ordered -normal -consult Dr. Hatch for further evaluation -patient has had outpatient workup and will continue as outpatient -Consult Cardiology for further eval/intervention 2. Hypokalemia: - K+ 3.4, s/p replacement, will recheck and replace as needed 3. Dehydration: -IVF for hydration 4. UTI -Start Rocephin; monitor cultures DVT Prophylaxis: SCD/Teds
--- NOTE | 2018-03-09 13:28 | P.DS ---
Date of admission: 03/07/18 23:07 Primary care physician: UNKNOWN Attending physician on discharge: Jose Garcia Anticipated date of discharge: 03/09/18 Brief History from admission: This is an 82-year-old female with a PMH of Vertigo and Glaucoma who was brought to the ER by EMS after syncopal event. Pt reports feeling "weak" earlier this evening, "like I needed to bend over" at which time she had subsequent syncopal event, caught by and lowered to a chair. No head trauma reported. Denies dizziness or lightheadedness prior to event. Notes she was seen by Dr. Hatch 1wk ago after "doing funny things", states she was eating breakfast and was putting her spoon in the butter instead of her coffee and trying to cut her plate instead of her toast, pt has no recollection of those events and cannot recall if she had syncope at that time. States she had MRI/MRA which were reportedly negative per patient, and had EEG/labs done but does not know the results. Upon EMS arrival tonight, pt noted to be hypotensive w/ BP in the 80's s/p IVF w/ improvement. BP 111/66, HR 62, O2 sat 100% on RA, Afebrile. CBC unremarkable. K+ 3.4. BUN 19, GFR 66. Troponin negative. CXR with no acute findings, age indeterminate lumbar vertebral body compression fracture. CT Head with no acute findings. DS: Diagnosis - Discharge Diagnosis (1) Syncope Status: Resolved (2) Hypokalemia Status: Resolved (3) Dehydration Status: Resolved (4) UTI (urinary tract infection), uncomplicated Status: Resolved DS: Summary Hospital Course: Patient is an 82-year-old female who presented to the emergency room after a syncopal event. According to report she was lowered to a chair by a family member and had no head trauma. Head CT was negative. She had had a previous episode of confusion and bizarre behavior less than a month ago. She was evaluated by Dr. Hatch after that and all studies were negative per the family's report. No further episodes occurred during hospitalization. Syncopal but does not appear to be related to cardiac issue as troponins and echo were normal. Patient to follow-up as outpatient with neurology and cardiology. - Time Spent with Patient Total time spent providing and/or coordinating discharge services: Less than 30 minutes - Quality: VTE Deep Vein Thrombosis/Pulmonary Embolism Present on Admission: No Exam Vital signs: Vital Signs 03/08/18 16:00 03/08/18 19:37 03/09/18 00:00 Temperature 98.1 F 97.7 F 97.9 F Pulse Rate 66 62 68 Respiratory Rate 14 19 19 Blood Pressure 112/70 123/75 116/65 Pulse Oximetry 68 L 96 94 L 03/09/18 03:51 03/09/18 08:00 03/09/18 11:40 Temperature 97.5 F L 98.7 F 98.8 F Pulse Rate 67 59 L 60 Respiratory Rate 19 18 16 Blood Pressure 118/74 143/80 H 118/69 Pulse Oximetry 97 96 94 L Intake & Output 03/08/18 03/09/18 03/09/18 18:59 06:59 18:59 Intake Total 1100 / 1100 2120 / 2120 100 / 100 Balance 1100 / 1100 2120 / 2120 100 / 100 Weight 54.431 kg Intake: IV 100 / 100 2100 / 2100 100 / 100 NS Inj 1,000 ML @ 100 mls/hr IV 0 / 0 1999 / 1999 .CONT .Q10H RO Rx#:[id number] Rocephin Inj 1,000 MG In NS Inj 100 / 100 100 / 100 100 / 100 100 ML @ 200 mls/hr IV.SIG Q12H RO Rx#:[id number] Oral 1000 / 1000 20 / 20 Other: # Voids 1 Narrative: GENERAL: Extremely pleasant elderly white female in no acute distress. SKIN: Focused skin assessment warm and dry. HEENT: PERRLA, EOMI. No scleral icterus or conjunctival pallor. No lid lag or facial droop. CARDIOVASCULAR: Regular rate and rhythm. No obvious murmurs to auscultation. No chest tenderness to palpation. RESPIRATORY: Clear to auscultation. Breath sounds equal bilaterally. GASTROINTESTINAL: Abdomen soft, non-tender, nondistended. BS normal. MUSCULOSKELETAL: Extremities without clubbing, cyanosis, or edema. No obvious deformities. NEUROLOGICAL: Awake, alert and oriented x4. No focal neurologic deficits. Moving both upper and lower extremities spontaneously. PSYCHIATRIC: Appropriate mood and affect. Insight and judgment normal. Results Procedures completed during hospitalization: none - Impressions ITS Impressions Chest X-Ray 03/07/18 21:31 CONCLUSION: 1. No acute cardiopulmonary disease identified. 2. Age-indeterminate upper lumbar vertebral body compression fracture deformity. Head CT 03/07/18 21:31 CONCLUSION: No acute intracranial findings. . Discharge Plan - Discharge Disposition Patient Disposition: 01 Discharge Home - Discharge Condition Condition: Stable - Discharge Order Discharge Orders: Discharge Order (Routine); Ordered 03/09/18 Ordered By: Ashley Patricio - Physicians Team Primary Care Provider: UNKNOWN, Attending Provider: Jose Garcia Other Providers: Jenaro Ordaz MD ; Arturo Barron MD ; [employer], Insurance
== END 2018-03-09 15:58 | disposition home or self-care (01) ==
LOC: NEDA 21:14 → NEPC 21:14 → NEPGCP 03-08 00:44
PROVIDERS: ADMIT Hospitalist; ATTEND Hospitalist
DX: N39.0 Urinary tract infection, site not specified; D69.6 Thrombocytopenia, unspecified; R55 Syncope and collapse; H40.9 Unspecified glaucoma; M48.56XA Collapsed vertebra, not elsewhere classified, lumbar region, initial encounter for fracture; Z87.891 Personal history of nicotine dependence; E86.0 Dehydration; E87.6 Hypokalemia